=== PATIENT | male | born 1975 | race Caucasian/White ===

== ENCOUNTER 2021-12-24 08:00 | Outpatient (CLI) | payer OTHER ==
--- NOTE | 2021-12-24 13:14 | XRAY Report ---
PROCEDURE: Elbow 3 View RT INDICATIONS: RIGHT ELBOW SPRAIN TECHNIQUE: 3 views of the elbow were acquired. COMPARISON: None. FINDINGS: BONES/JOINT: No acute, displaced fracture or dislocation. No appreciable joint effusion. SOFT TISSUES: No focal abnormality. IMPRESSION: 1.No acute osseous abnormality of the elbow. Reviewed by: Richard Mcnair MD on 12/24/2021 1:13 PM PDT Approved by: Richard Mcnair MD on 12/24/2021 1:13 PM PDT Station ID: [id number]
== END 2021-12-24 23:59 ==
LOC: DI.S 08:00
PROVIDERS: ATTEND Emergency Medicine
DX: S53.431A Radial collateral ligament sprain of right elbow, initial encounter (principal)

== ENCOUNTER 2023-10-13 08:00 | Outpatient (CLI) | payer OTHER ==
--- NOTE | 2023-10-13 12:29 | XRAY Report ---
PROCEDURE: Lumbar Spine 4V INDICATIONS: LUMBAR SPRAIN TECHNIQUE: 3 views of the lumbar spine were acquired. COMPARISON: None. FINDINGS: Bones: 5 [id number] vertebrae are present. There is normal bony alignment. No acute vertebral body compression fractures. Mild chronic superior endplate compression of L1. No suspicious bony les ions. Soft tissues: Overlying bowel gas pattern is normal. No suspicious soft tissue calcifications. IMPRESSION: Mild chronic L1 compression. Otherwise unremarkable. Reviewed by: Todd Pettit MD on 10/13/2023 12:28 PM PST Approved by: Todd Pettit MD on 10/13/2023 12:28 PM PST Station ID: [id number]
== END 2023-10-13 23:59 | disposition home or self-care (01) ==
LOC: DI.S 08:00
PROVIDERS: ATTEND Physician Assistant Medical
DX: M48.56XA Collapsed vertebra, not elsewhere classified, lumbar region, initial encounter for fracture (principal); M54.31 Sciatica, right side